=== PATIENT | female | born 1995 | race African-American/Black ===

== ENCOUNTER 2017-03-22 14:51 | Outpatient (CLI) | payer SELFPAY ==
--- NOTE | 2017-03-22 15:55 | Non Stress Test Report ---
Non Stress Test Datetime Report Generated by CPN: 03/22/2017 15:55 DEMOGRAPHIC Test Number: 1 EGA NST: 33.6 INDICATION Indication for Study: Ordered by Provider; Other Indication for Study (NST) Other: Contractions MONITORING Monitor Explained: Monitor Explained; Test Explained; Patient Verbalized Understanding Time on Monitor: 03/22/2017 15:24 Time off Monitor: 03/22/2017 15:45 NST Duration: 21 NST INTERVENTIONS NST Interventions: None Physician Notified NST: Dr. Prado BABY A: [id number] BABY A Movement : Present Contraction Frequency : Irreg FHR Baseline : 135 Accelerations : 15X15 Decelerations : None Variability : Moderate 6-25bpm NST Review: Meets Criteria for Reactive NST NST Review and Verified By : Sol Lambert RN NST Results: Reactive NST REPORT Report Trigger: Send Report
[2017-03-22] MEDS ORDERED: HYDROXYZINE PAMOATE 50 MG CAPSULE ONE (16:11)
[2017-03-22] MEDS ORDERED: HYDROXYZINE PAMOATE 50 MG CAPSULE PO ONE (16:32)
[2017-03-22 16:58] LABS: APPEARANCE,URINE CLEAR; BILIRUBIN,URINE NEGATIVE (NEGATIVE); GLUCOSE, URINE NEGATIVE (NEGATIVE); KETONES,URINE NEGATIVE (NEGATIVE); LEUKOCYTE ESTERASE,URINE NEGATIVE (NEGATIVE); NITRITE,URINE NEGATIVE (NEGATIVE); PROTEIN,URINE NEGATIVE (NEGATIVE); URINE SPECIFIC GRAVITY 1.009; UROBILINOGEN,URINE NEGATIVE mg/dL (<2.0)
[2017-03-22 17:10] LABS: URINE BARBITURATES SCREEN NEGATIVE; URINE METHADONE SCREEN NEGATIVE; URINE OPIATES LOW NEGATIVE; URINE PHENCYCLIDINE SCREEN NEGATIVE
== END 2017-03-22 16:28 | disposition home or self-care (01) ==
LOC: LC 14:51
PROVIDERS: ATTEND Obstetrics & Gynecology
PROC: 4A1HXCZ Monitoring of Products of Conception, Cardiac Rate, External Approach (ICD-10-PCS; principal; 2017-03-22)
DX: O47.03 False labor before 37 completed weeks of gestation, third trimester (principal); Z3A.33 33 weeks gestation of pregnancy
CPT/HCPCS: 59025; 80307; 81001

== ENCOUNTER 2017-05-07 15:21 | Outpatient (CLI) | payer SELFPAY ==
[2017-05-07 15:54] LABS: APPEARANCE,URINE SLIGHTLY-CLOUDY; BILIRUBIN,URINE NEGATIVE (NEGATIVE); GLUCOSE, URINE NEGATIVE (NEGATIVE); KETONES,URINE NEGATIVE (NEGATIVE); LEUKOCYTE ESTERASE,URINE LARGE (NEGATIVE); NITRITE,URINE NEGATIVE (NEGATIVE); PROTEIN,URINE NEGATIVE (NEGATIVE); URINE SPECIFIC GRAVITY 1.004; UROBILINOGEN,URINE NEGATIVE mg/dL (<2.0)
[2017-05-07 16:00] LABS: AMNISURE (ROM) NEGATIVE (NEGATIVE)
[2017-05-07 16:31] LABS: URINE BARBITURATES SCREEN NEGATIVE; URINE METHADONE SCREEN NEGATIVE; URINE OPIATES LOW NEGATIVE; URINE PHENCYCLIDINE SCREEN NEGATIVE
== END 2017-05-07 16:50 | disposition home or self-care (01) ==
LOC: LC 15:21
PROVIDERS: ATTEND Obstetrics & Gynecology
PROC: 4A1HXCZ Monitoring of Products of Conception, Cardiac Rate, External Approach (ICD-10-PCS; principal; 2017-05-07)
DX: O47.1 False labor at or after 37 completed weeks of gestation (principal); Z3A.40 40 weeks gestation of pregnancy
CPT/HCPCS: 59025; 80307; 81005; 84112

== ENCOUNTER 2017-05-15 16:16 | Outpatient (CLI) | payer MEDICAID ==
[2017-05-15 17:08] LABS: APPEARANCE,URINE SLIGHTLY-CLOUDY; BILIRUBIN,URINE NEGATIVE (NEGATIVE); GLUCOSE, URINE NEGATIVE (NEGATIVE); KETONES,URINE NEGATIVE (NEGATIVE); LEUKOCYTE ESTERASE,URINE TRACE (NEGATIVE); NITRITE,URINE NEGATIVE (NEGATIVE); PROTEIN,URINE NEGATIVE (NEGATIVE); URINE SPECIFIC GRAVITY 1.011; UROBILINOGEN,URINE NEGATIVE mg/dL (<2.0)
[2017-05-15 17:18] LABS: URINE BARBITURATES SCREEN NEGATIVE; URINE METHADONE SCREEN NEGATIVE; URINE OPIATES LOW NEGATIVE; URINE PHENCYCLIDINE SCREEN NEGATIVE
--- NOTE | 2017-05-15 18:14 | Non Stress Test Report ---
Non Stress Test Datetime Report Generated by CPN: 05/15/2017 18:14 DEMOGRAPHIC EGA NST: 41.4 EGA NST: 40.3 INDICATION Indication for Study: Ordered by Provider Indication for Study (NST) Other: Dr Walker Indication for Study (NST) Other: LC VITAL SIGNS Temperature - NST: 98.0 Pulse - NST: 89 RESP - NST: 18 NBPSYS NST: 112 NBPDIA NST: 56 MONITORING Monitor Explained: Monitor Explained; Test Explained; Patient Verbalized Understanding Monitor Explained: Monitor Explained; Test Explained; Patient Verbalized Understanding Time on Monitor: 05/15/2017 16:34 Time on Monitor: 05/07/2017 15:35 Time off Monitor: 05/15/2017 18:11 Time off Monitor: 05/07/2017 16:32 NST Duration: 97 NST Duration: 57 NST INTERVENTIONS NST Interventions: PO Hydration; Reposition Patient NST Interventions: PO Hydration; Reposition Patient Physician Notified NST: Dr Walker Physician Notified NST: H Mj CNM BABY A: [id number] BABY A Movement : Present Movement : Present Contraction Frequency : rare Contraction Frequency : irregular FHR Baseline : 130 FHR Baseline : 135 Accelerations : 15X15 Accelerations : 15X15 Decelerations : None Decelerations : None Variability : Moderate 6-25bpm Variability : Moderate 6-25bpm NST Review: Meets Criteria for Reactive NST NST Review: Meets Criteria for Reactive NST NST Review and Verified By : Sol Reid RN NST Results: Reactive NST Results: Reactive NST REPORT Report Trigger: Send Report
== END 2017-05-15 18:19 | disposition home or self-care (01) ==
LOC: LC 16:16
PROVIDERS: ATTEND Obstetrics & Gynecology
DX: Z34.83 Encounter for supervision of other normal pregnancy, third trimester (principal); Z3A.41 41 weeks gestation of pregnancy
CPT/HCPCS: 59025; 81001; 80307; Q0114

== ENCOUNTER 2017-05-16 07:34 | Emergency (ER) | payer MEDICAID ==
[2017-05-16] MEDS ORDERED: OXYTOCIN/NORMAL SALINE 20 UNIT/1,000 ML RTUINJ ONE (07:51)
[2017-05-16] MEDS ORDERED: MISOPROSTOL 0.2 MG TABLET ONE (07:51)
[2017-05-16] MEDS ORDERED: LIDOCAINE 1% INJ-PF (10 MG/ML) 30 ML SDV ONE (07:51)
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
== END 2017-05-16 07:41 | disposition admitted as inpatient to this hospital (09) ==
LOC: ER 07:34
DX: O26.893 Other specified pregnancy related conditions, third trimester (principal); R10.9 Unspecified abdominal pain
CPT/HCPCS: J3490; J2590

== ENCOUNTER 2017-05-16 07:42 | Inpatient (IN) | payer MEDICAID ==
[2017-05-16] MEDS ORDERED: OXYTOCIN 10 UNIT/ML VIAL ONE (08:03)
[2017-05-16] MEDS ORDERED: MISOPROSTOL 0.2 MG TABLET ONE (08:03)
[2017-05-16] MEDS ORDERED: OXYTOCIN/NORMAL SALINE 20 UNIT/1,000 ML RTUINJ ONE (08:04)
[2017-05-16] MEDS ORDERED: LIDOCAINE 1% INJ-PF (10 MG/ML) 30 ML SDV ONE (08:04)
[2017-05-16] MEDS ORDERED: PENICILLIN G-K 5 MILLION UNIT VIAL ONE (08:04)
[2017-05-16] MEDS ORDERED: PENICILLIN G POTASSIUM 5,000,000 UNIT in DEXTROSE 5%-WATER 100 ML IV ONE (08:06)
[2017-05-16] MEDS ORDERED: RINGERS SOLUTION,LACTATED 1,000 ML IV PRN (08:06)
[2017-05-16 08:42] LABS: ABSOLUTE LYMPHOCYTES (AUTO) 1.6 10^3/uL (0.5-4.7); ABSOLUTE MONOCYTES (AUTO) 0.5 10^3/uL (0.1-1.4); ABSOLUTE NEUT (AUTO) 2.9 10^3/uL (1.7-8.2); BASOPHILS % (AUTO) 0.4 % (0-2); EOSINOPHILS % (AUTO) 0.8 % (0-6); HEMATOCRIT 32.3 % (36.0-47.0); HEMOGLOBIN 10.3 g/dL (12.0-15.5); HGB HCT DIFFERENCE -1.4; LYMPHOCYTES % (AUTO) 31.1 % (13-45); MEAN CORPUSCULAR HEMOGLOBIN 29.3 pg (27.0-33.4); MEAN CORPUSCULAR HGB CONC 31.7 g/dL (32.0-36.0); MEAN CORPUSCULAR VOLUME 92 fl (80-97); MONOCYTES % (AUTO) 9.6 % (3-13); RED CELL DISTRIBUTION WIDTH 13.8 % (11.5-14.0); SEGMENTED NEUTROPHILS % (AUTO) 58.1 % (42-78)
[2017-05-16] MEDS ORDERED: OXYTOCIN/NORMAL SALINE 20 UNIT/1,000 ML RTUINJ IV PRN ×2 (09:37→18:33)
[2017-05-16] MEDS ORDERED: LIDOCAINE 1% INJ-PF (10 MG/ML) 30 ML SDV INJ PRN (09:37)
[2017-05-16] MEDS ORDERED: MISOPROSTOL 0.2 MG TABLET PR PRN (09:37)
[2017-05-16 10:24] LABS: APPEARANCE,URINE CLEAR; BILIRUBIN,URINE NEGATIVE (NEGATIVE); GLUCOSE, URINE NEGATIVE (NEGATIVE); KETONES,URINE NEGATIVE (NEGATIVE); LEUKOCYTE ESTERASE,URINE NEGATIVE (NEGATIVE); NITRITE,URINE NEGATIVE (NEGATIVE); PROTEIN,URINE NEGATIVE (NEGATIVE); URINE SPECIFIC GRAVITY 1.011; UROBILINOGEN,URINE NEGATIVE mg/dL (<2.0)
[2017-05-16 11:03] LABS: URINE BARBITURATES SCREEN NEGATIVE; URINE METHADONE SCREEN NEGATIVE; URINE OPIATES LOW NEGATIVE; URINE PHENCYCLIDINE SCREEN NEGATIVE
[2017-05-16] MEDS ORDERED: PENICILLIN G POTASSIUM 2,500,000 UNIT in DEXTROSE 5%-WATER 50 ML IV SCH (12:08)
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
[2017-05-16] MEDS ORDERED: ACETAMINOPHEN WITH CODEINE #3 TABLET ONE (18:19)
[2017-05-16] MEDS ORDERED: MEASLES,MUMPS&RUBELLA VACC/PF 0.5 ML VIAL SUBCUT PRN (18:33)
[2017-05-16] MEDS ORDERED: DIPHENHYDRAMINE HCL 25 MG CAPSULE PO PRN (18:33)
[2017-05-16] MEDS ORDERED: NA PHOS,M-B/NA PHOS,DI-BA (ADULT) 133 ML ENEMA PR PRN (18:33)
[2017-05-16] MEDS ORDERED: MAGNESIUM HYDROXIDE SUSP 30 ML UDCUP PO PRN (18:33)
[2017-05-16] MEDS ORDERED: PROMETHAZINE HCL INJ 25 MG/1 ML VIAL IV PRN (18:33)
[2017-05-16] MEDS ORDERED: PSEUDOEPHEDRINE HCL 30 MG TABLET PO PRN (18:33)
[2017-05-16] MEDS ORDERED: DIPH/PERTUSS(ACELL)/TETANUS VAC/PF 0.5 ML SYR (>=10YO) IM PRN (18:33)
[2017-05-16] MEDS ORDERED: ACETAMINOPHEN 650 MG SUPP.RECT PR PRN (18:33)
[2017-05-16] MEDS ORDERED: BENZOCAINE/MENTHOL AEROSOL SPRAY 56 ML TOP PRN (18:33)
[2017-05-16] MEDS ORDERED: DIBUCAINE 1% OINTMENT 28 GM TP PRN (18:33)
[2017-05-16] MEDS ORDERED: GLYCERIN/WITCH HAZEL LEAF 1 EACH MED..PAD TP PRN (18:33)
[2017-05-16] MEDS ORDERED: PROMETHAZINE HCL 25 MG TABLET PO PRN (18:33)
[2017-05-16] MEDS ORDERED: ZOLPIDEM TARTRATE 5 MG TABLET PO PRN (18:33)
[2017-05-16] MEDS ORDERED: PROMETHAZINE HCL 25 MG SUPP.RECT PR PRN (18:33)
[2017-05-16] MEDS ORDERED: IBUPROFEN 800 MG TABLET ONE (19:58)
--- NOTE | 2017-05-16 20:00 | Delivery Summary ---
Del Sum A-C Datetime Report Generated by CPN: 05/16/2017 19:59 DELIVERY PERSONNEL DELIVERY PERSONNEL: [id number] Delivery Doctor:: Marlee Bryan CNM Labor and Delivery Nurse:: Carine Okeefe RNdrop wire builder Nurse:: Zay Santana RN Nursery Nurse:: Edith Waller RN Student Observers:: Eitan Langleyon, MS III MATERNAL INFORMATION Delivery Anesthesia: None Medications After Delivery: Pitocin Bolus-Please Comment Meds After Delivery Comment: Pitocin 20 units in 1000mL NS Estimated Blood Loss (ml): 175 Maternal Complications: None Provider Comments: viable male at 1801. No anesthesia. Spontaneous respirations and cry. 3 vessel cord. Apgars 9-9. Cord clamped x 2, after 2 min delay, then cut by Med Student. Placenta, membranes, and cord expelled at 1806, Galindo presentation-appears intacct. Perineum intact. FF at U-3 with massage. Patient tolerated procedure well. LABOR SUMMARY EDC: 05/04/2017 00:00 No. Babies in Womb: 1 Attempted: No Labor Anesthesia: None LABOR INFORMATION Reason for Induction: Not Applicable Onset of Labor: 05/16/2017 04:00 Complete Dilatation: 05/16/2017 17:32 Oxytocin: N/A Group B Beta Strep: Negative Antibiotics # of Doses: 0 Steroids Given: None Reason Steroids Not Administered: Not Applicable MEMBRANES Membranes Rupture Method: Artificial Rupture of Membranes: 05/16/2017 16:09 Length of Rupture (hr): 1.87 Amniotic Fluid Color: Clear Amniotic Fluid Amount: Moderate Amniotic Fluid Odor: Normal STAGES OF LABOR Stage 1 hr: 13 Stage 1 min: 32 Stage 2 hr: 0 Stage 2 min: 29 Stage 3 hr: 0 Stage 3 min: 5 Total Time in Labor hr: 14 Total Time in Labor min: 6 VAGINAL DELIVERY Episiotomy: None Laceration Extension: N/A Laceration Type: None Laceration Repair: Not Applicable Sponge Count Correct: N/A CSECTION DELIVERY Primary Indication: N/A Secondary Indication: N/A CSection Incidence: N/A Elective: N/A CSection Incision: N/A BABY A INFORMATION Infant Delivery Date/Time: 05/16/2017 18:01 Method of Delivery: Vaginal Born in Route : No : N/A Forceps: N/A Vacuum Extraction: N/A Shoulder Dystocia : No PRESENTATION/POSITION BABY A Presentation: Cephalic Cephalic Presentation: Vertex Vertex Position: Right Occipital Anterior Breech Presentation: N/A PLACENTA INFORMATION BABY A Placenta Delivery Time : 05/16/2017 18:06 Placenta Method of Delivery: Spontaneous Placenta Status: Delivered SCORES BABY A Heart Rate 1 min: >100 bpm Resp Effort 1 min: Good Cry Reflex Irritability 1 min: Cough or Sneeze or Pulls Away Muscle Tone 1 min: Active Motion Color 1 min: Body Merrick, Extremities Blue Resuscitation Effort 1 min: Tactile Stimulation SCORE 1 MIN: 9 Heart Rate 5 min: >100 bpm Resp Effort 5 min: Good Cry Reflex Irritability 5 min: Cough or Sneeze or Pulls Away Muscle Tone 5 min: Active Motion Color 5 min: Body Merrick, Extremities Blue Resuscitation Effort 5 min: Tactile Stimulation SCORE 5 MIN: 9 INFORMATION BABY A Gestational Age at Delivery: 41.5 Gestational Status: Late Term- 41- 41.6 Weeks Outcome : Liveborn Condition : Stable Infant Sex: Male IDENTIFICATION BABY A Infant Verification Date/Time: 05/16/2017 18:12 ID Band Number: [id number] Mother's Name Verified: Yes Infant RN Verifying : Marco Marie RN/ Jone Waller RN Additional Verifying Personnel: Jone Waller RN WEIGHT/LENGTH BABY A Birthweight (gm): 4050 Infant Weight (lb): 8 Infant Weight (oz): 15 Length (in): 21.25 Length (cm): 53.98 CORD INFORMATION BABY A No. Cord Vessels: 3 Nuchal Cord : N/A Cord Blood Taken: Yes-For Eval (Mom's Blood Type - or O+) Suction: Mouth; Nose ASSESSMENT BABY A Complications: None Physical Findings at Delivery: Within Normal Limits; Molding of the Head Physical Findings- Other: See full nursery assessment Infant Respirations: Appears Normal Skin to Skin: Yes Skin to Skin Time (min): 90 Art Consultant/ALS Called : No Infant Care By: Sol Santana RN Transferred To: Nursery BABY B INFORMATION : N/A SIGNATURES Assignment: Pari Glass MD Signature: with User ID: [email or web address] : with User ID: [email or web address] : I personally evaluated and examined the patient in conjunction with the MLP and agree with the assessment, treatment plan and disposition.
[2017-05-16] MEDS: IBUPROFEN 800 MG TABLET PO SCH (20:13)
--- NOTE | 2017-05-16 20:18 | Admission Physical ---
Datetime Report Generated by CPN: 05/16/2017 20:18 CURRENT ADMISSION Chief Complaint: Uterine Contractions Chief Complaint: Uterine Contractions Chief Complaint Other: No records Indication for Induction: Not Applicable Indication for Induction: Not Applicable Admit Impression- Other: Admitted at /3 Admit Plan: Admit to Unit; Initiate Labor Protocol Admit Plan: Admit to Unit; Initiate Labor Protocol ALLERGIES Medication Allergies: No Medication Allergies: No Known Allergies (05/15/2017) Medication Allergies: No Known Allergies (05/07/2017) Medication Allergies: No Known Allergies (03/22/2017) Latex: No Latex Allergies Food Allergies: None Environmental Allergies: None OBSTETRICAL HISTORY EDC: 05/04/2017 00:00 : 4 Para: 2 Term: 2 : 0 SAB: 0 IAB: 1 Ectopic: 0 Livin Cesareans: 0 VBACs: 0 Multiple Births: 0 Gestational Diabetes: No Rh Sensitization: No Incompetent Cervix: No ROSALINDA: No Infertility: No ART Treatment: No Uterine Anomaly: No IUGR: No Hx Previous C/S: No Macrosomia: No Hx Loss/Stillborn: No PIH: No Hx : No Placenta Previa/Abruption: No Depression/PP Depression: Yes PTL/PROM: No Post Hemorrhage: No Obstetrical History Comments: G1:, 10/2012 G2:, 11/2013 G3:EAB, 10/2015 G4:current SEE RECORDS Alcohol: No Marijuana : No Cocaine: No Other Illicit Drugs: No Cigarettes: Never Smoker. [id number] MEDICAL HISTORY Diabetes: No Blood Transfusion: No Pulmonary Disease (Asthma, TB): No Breast Disease: No Hypertension: No Noxious Weeds And Pest Inspector Surgery: No Heart Disease: No Hosp/Surgery: Yes Autoimmune Disorder: No Anesthetic Complications: No Kidney Disease: No Abnormal Pap Smear: No Neuro/Epilepsy: No Psychiatric Disorders: No Other Medical Diseases: No Hepatitis/Liver Disease: No Significant Family History: No Varicosities/Phlebitis: No Trauma/Violence : No Thyroid Dysfunction: No Medical History Comments: childbirth INFECTIOUS HISTORY Gonorrhea: No Genital Herpes: No Chlamydia: Yes Tuberculosis: No Syphilis: No Hepatitis: No HIV/AIDS Exposure: No Rash or Viral Illness: No HPV: No Infectious History Comments: Chlamydia 2015 PHYSICAL EXAM General: Normal General: Normal HEENT: Normal HEENT: Normal Neurologic: Normal Neurologic: Normal Thyroid: Deferred Thyroid: Normal Heart: Normal Heart: Normal Lungs: Normal Lungs: Normal Breast: Deferred Breast: Deferred Back: Deferred Back: Normal Abdomen: Normal Abdomen: Normal Genitourinary Exam: Deferred Genitourinary Exam: Normal Extremities: Normal Extremities: Normal DTRs: Normal DTRs: Normal Pelvic Type: Not Done (Annotations: Data stored by [facility] on behalf of user) Pelvic Type: Adequate Vital Signs: Reviewed Vital Signs: Reviewed VAGINAL EXAM Dilatation: 6 Dilatation: 6 Dilatation: 8 Effacement: 80 Effacement: 50 Effacement: 1 Station: -2 Station: -3 MEMBRANES Membranes: Ruptured Membranes: Intact Amniotic Fluid Color: Clear FETUS A EGA: 41.5 EGA: 41.5 Monitoring: External US FHR- Baseline: 120 Variability: Moderate 6-25bpm Accelerations: 15X15 Decelerations: None Presentation: Vertex Admit Comment: Admitted in labor with cervical dilation of 50/-3 Care at 2 different places-records available Proven for 8lbs 5 oz History of ptyalism History of depression History of episodes of tachycardia GBS negative Plan to admit and manage labor and anticipate -will not AROM as high station at this time Patient does not want an epidural PLANS FOR LABOR AND DELIVERY Labor and Delivery: None Pain Management: Natural Feeding Preference: Formula Benefit of Breast Feed Discussed: Yes Circumcision: Yes INFORMED CONSENT Assignment: Pari Glass MD Signature: with User ID: [email or web address] : with User ID: [email or web address] : I personally evaluated and examined the patient in conjunction with the MLP and agree with the assessment, treatment plan and disposition. : I personally evaluated and examined the patient in conjunction with the MLP and agree with the assessment, treatment plan and disposition. : I personally evaluated and examined the patient in conjunction with the MLP and agree with the assessment, treatment plan and disposition.
[2017-05-17] MEDS: FAMOTIDINE 20 MG TABLET PO SCH ×3 (00:27→22:52)
[2017-05-17] MEDS: ACETAMINOPHEN WITH CODEINE #3 TABLET PO PRN ×4 (03:38→21:26)
[2017-05-17] MEDS: IBUPROFEN 800 MG TABLET PO SCH ×3 (06:32→21:25)
[2017-05-17 07:51] LABS: HEMATOCRIT 31.4 % (36.0-47.0); HEMOGLOBIN 10.4 g/dL (12.0-15.5); HGB HCT DIFFERENCE -0.2; MEAN CORPUSCULAR HEMOGLOBIN 30.6 pg (27.0-33.4); MEAN CORPUSCULAR HGB CONC 33.2 g/dL (32.0-36.0); MEAN CORPUSCULAR VOLUME 92 fl (80-97); RED CELL DISTRIBUTION WIDTH 14.1 % (11.5-14.0); WHITE BLOOD COUNT 9.2 10^3/uL (4.0-10.5)
[2017-05-17] MEDS: FERROUS SULFATE 325 MG TABLET PO SCH ×2 (09:32→17:27)
[2017-05-17] MEDS: SENNOSIDES/DOCUSATE 8.6-50 MG 1 EACH TABLET PO SCH (09:32)
[2017-05-17] MEDS: PRENATAL VITAMIN W-O CA NO5/FE FUMARATE/FA CAPSULE PO SCH (09:32)
[2017-05-17] MEDS: DOCUSATE SODIUM 100 MG CAPSULE PO SCH ×2 (09:33→17:27)
--- NOTE | 2017-05-17 10:01 | PDOC PROGRESS REPORT ---
Subjective Progress Note for:: 05/17/17 Subjective:: s/p vaginal delivery. doing well. Physical Exam - Physical Exam Vital Signs: Temp Pulse Resp BP Pulse Ox 97.9 F 85 16 110/52 L 99 05/17/17 08:37 05/17/17 08:37 05/17/17 08:37 05/17/17 07:29 05/17/17 08:37 Intake & Output 05/16/17 05/17/17 05/18/17 06:59 06:59 06:59 Intake Total 800 Balance 800 Weight 86.45 kg General appearance: PRESENT: no acute distress, cooperative - Obstetrical Exam Fundal Height: u/u - u/2 Tender: No Result Laboratory Results: 05/17/17 07:35 05/16/17 05/17/17 09:59 07:35 WBC 9.2 RBC 3.40 L Hgb 10.4 L Hct 31.4 L MCV 92 MCH 30.6 MCHC 33.2 RDW 14.1 H Plt Count 237 Urine Color YELLOW Urine Appearance CLEAR Urine pH 7.0 Ur Specific [place] 1.011 Urine Protein NEGATIVE Urine Glucose (UA) NEGATIVE Urine Ketones NEGATIVE Urine Blood MODERATE H Urine Nitrite NEGATIVE Ur Leukocyte Esterase NEGATIVE Assessment & Plan - Diagnosis (1) Vaginal delivery Is this a current diagnosis for this admission?: Yes (2) Abdominal pain Qualifiers: Abdominal location: lower abdomen, unspecified Qualified Code(s): R10.30 - Lower abdominal pain, unspecified Is this a current diagnosis for this admission?: Yes (3) Active labor Is this a current diagnosis for this admission?: Yes - Plan Summary Plan Summary: plan for discharge in AM
[2017-05-18] MEDS: IBUPROFEN 800 MG TABLET PO SCH ×2 (06:32→13:41)
[2017-05-18] MEDS: PRENATAL VITAMIN W-O CA NO5/FE FUMARATE/FA CAPSULE PO SCH (08:41)
[2017-05-18] MEDS: DOCUSATE SODIUM 100 MG CAPSULE PO SCH (08:42)
[2017-05-18] MEDS: FAMOTIDINE 20 MG TABLET PO SCH (08:42)
[2017-05-18] MEDS: FERROUS SULFATE 325 MG TABLET PO SCH (08:42)
[2017-05-18] MEDS: ACETAMINOPHEN WITH CODEINE #3 TABLET PO PRN (08:42)
[2017-05-18] MEDS: SENNOSIDES/DOCUSATE 8.6-50 MG 1 EACH TABLET PO SCH (08:42)
[2017-05-18 08:48] VITALS: BP 113/61
--- NOTE | 2017-05-18 10:51 | PDOC DISCHARGE SUMMARY ---
Final Diagnosis Discharge Date: 05/18/17 - planning on moving back to [place] in the next few weeks - Final Diagnosis (1) Anemia affecting Is this a current diagnosis for this admission?: Yes (2) Vaginal delivery Is this a current diagnosis for this admission?: Yes Discharge Data - Discharge Medication Home Medications: Docusate Sodium [Colace 100 mg Capsule] 100 mg PO BID #60 capsule 05/18/17 Ferrous Sulfate [Feosol 325 mg Tablet] 325 mg PO BID #60 tablet 05/18/17 Ibuprofen [Motrin 800 mg Tablet] 800 mg PO Q8HP PRN #30 tablet 05/18/17 Reason(s) for Admission: Onset of Labor Procedures: Ultrasound Intrapartum Procedure(s): Spontaneous Vaginal Delivery - Diagnosis Test Laboratory: Temp Pulse Resp BP Pulse Ox 98.0 F 75 18 113/61 99 05/18/17 07:55 05/18/17 07:55 05/18/17 07:55 05/18/17 07:55 05/18/17 07:55 05/16/17 05/16/17 05/17/17 08:31 09:59 07:35 RBC 3.50 L 3.40 L Hgb 10.3 L 10.4 L Hct 32.3 L 31.4 L Urine Opiates Screen NEGATIVE - Discharge information/Instructions Discharge Activity: Activity As Tolerated, Balance Activity w/Rest, No Lifting Over 10 Pounds, No Lifting/Push/Pulling, Pelvic Rest, No tub bath Discharge Diet: Regular Disposition: HOME, SELF-CARE Follow up with: [facility] - or current OB provider in: 4, Weeks
== END 2017-05-18 17:45 | disposition home or self-care (01) | DRG 775 ==
LOC: LC 07:42 → LR 07:57 → 2S 20:17
PROVIDERS: ADMIT Obstetrics & Gynecology; ATTEND Obstetrics & Gynecology
PROC: 10E0XZZ Delivery of Products of Conception, External Approach (ICD-10-PCS; principal; 2017-05-16)
PROC: 3E0234Z Introduction of Serum, Toxoid and Vaccine into Muscle, Percutaneous Approach (ICD-10-PCS; 2017-05-18)
DX: O48.0 Post-term pregnancy (principal); O99.214 Obesity complicating childbirth; E66.9 Obesity, unspecified; O99.02 Anemia complicating childbirth; D64.9 Anemia, unspecified; Z68.30 Body mass index [BMI] 30.0-30.9, adult; Z3A.41 41 weeks gestation of pregnancy; Z37.0 Single live birth; Z23 Encounter for immunization
CPT/HCPCS: 36415; 80307; 81005; 85025; 85027; 86592; 86850; 86900; 86901; 88307; 90715; J2540; J2590; J3490